=== PATIENT | male | born 1995 | race African-American/Black ===

== ENCOUNTER 2020-09-24 17:23 | Emergency (ER) | payer SELFPAY | END 2020-09-24 18:07 | disposition left against medical advice (07) | LOC: CSHERS 17:23 | DX: Z53.21 Procedure and treatment not carried out due to patient leaving prior to being seen by health care provider (principal) ==

== ENCOUNTER 2024-01-24 08:16 | Emergency (ER) | payer SELFPAY ==
[2024-01-24] MEDS ORDERED: Acetaminophen 500 MG TAB ONE (10:29)
== END 2024-01-24 11:13 | disposition home or self-care (01) ==
LOC: CSHERS 08:16
DX: J02.9 Acute pharyngitis, unspecified (principal)
CPT/HCPCS: 87081; 87430; 99283